=== PATIENT | female | born 1935 | race Hispanic/Latino ===

== ENCOUNTER 2019-03-31 08:15 | Emergency (ER) | payer MEDICARE ==
[~2019-03-31] VITALS: Ht 152.4 cm; Wt 60.8 kg
[~2019-03-31 08:15] MED LIST: ANTIVERT25 MG PO; ARICEPT5 MG PO; CARISOPRODOL350 MG PO; COREG3.125 MG PO; DEPAKOTE ER250 MG PO; FERROUS SULFAT325 MG PO; FUROSEMIDE40 MG PO; LEVAQUIN500 MG PO; LISINOPRIL10 MG PO; NAMENDA5 MG PO; PROCARDIA XL30 MG PO; SEROQUEL25 MG PO; TRAZODONE HCL50 MG PO
[2019-03-31] MEDS ORDERED: ASPIRIN 81 MG CHEW TAB PO ONE (08:30)
[2019-03-31 08:49] LABS: BASOPHILS % 0.3 % (0.0-1.0); EOSINOPHILS # (AUTO) 0.1 (0.0-0.4); EOSINOPHILS % 1.4 % (0.0-6.0); HEMATOCRIT 37.7 % (34.2-44.1); HEMOGLOBIN 12.5 g/dL (12.0-16.0); LYMPHOCYTES # (AUTO) 0.6 (1.0-3.2); LYMPHOCYTES % 8.8 % (18.0-39.1); MEAN CORPUSCULAR HEMOGLOBIN 28.7 pg (28-32); MEAN CORPUSCULAR HGB CONC 33.2 g/dL (31-35); MEAN CORPUSCULAR VOLUME 86.7 fL (81-99); MONOCYTES # (AUTO) 0.5 (0.2-0.8); NEUTROPHILS # (AUTO) 5.4 (2.1-6.9); NEUTROPHILS % 82.2 % (38.7-80.0); PLATELET COUNT 175 x10e3/uL (140-360); RED BLOOD COUNT 4.35 x10e6/uL (3.6-5.1)
[2019-03-31] MEDS ORDERED: LIDOCAINE 1% W/EPINEPHRINE 20 ML VIAL INJ ONE (09:00)
[2019-03-31 09:31] LABS: ALANINE AMINOTRANSFERASE 22 IU/L (0-55); ALBUMIN 3.8 g/dL (3.5-5.0); ANION GAP 16.3 mmol/L (8-16); BLOOD UREA NITROGEN 22 mg/dL (7-26); BUN/CREATININE RATIO 26 (6-25); CARBON DIOXIDE 27 mmol/L (22-29); CHLORIDE 102 mmol/L (98-107); CREATINE KINASE 365 IU/L (29-168); CREATININE, SERUM 0.85 mg/dL (0.57-1.11); EST GLOMERULAR FILTRATION RATE > 60 ML/MIN (60-); GLUCOSE 106 mg/dL (74-118); POTASSIUM 4.3 mmol/L (3.5-5.1); SODIUM 141 mmol/L (136-145)
[2019-03-31 09:43] LABS: ALKALINE PHOSPHATASE 104 IU/L (40-150)
--- NOTE | 2019-03-31 09:58 | Diagnostic Imaging Report ---
Head and cervical spine CTs without IV contrast History: Trauma, fall, weakness, head laceration Comparison studies: No prior exams are available for comparison the time of dictation. Technique: Axial images were obtained from the brain and cervical spine. Coronal and sagittal images reconstructed from the axial data. Dose modulation, iterative reconstruction, and/or weight based adjustment of the mA/kV was utilized to reduce the radiation dose to as low as reasonably achievable. Intravenous contrast: None Findings: Head CT: Exam is somewhat limited by artifacts related to patient motion. Spinal limitations: Scalp: Left zygomatical frontal soft tissue hematoma and laceration. No retained hyperdense foreign body. Bones: No fractures, blastic or lytic lesions. Extra-axial spaces: No masses. No fluid collections. Brain sulci: Mildly prominent. Ventricles: Mild compensatory dilatation. No hydrocephalus. Parenchyma: No mass, acute hemorrhage or acute cortical insults. A few scattered hypodensities in the supratentorial white matter are nonspecific but most compatible with chronic microvascular ischemic changes. There is mild generalized volume loss with greater disproportionate volume loss along the anteromedial temporal lobes an hippocampi. Sellar/suprasellar region: No abnormalities. Craniocervical junction: The foramen magnum is patent. No Chiari one malformation. Cervical spine CT: Fractures: None. Soft tissues: No gross acute abnormalities. Atlantoaxial articulation: Intact. Patient's head is rotated at the time the exam. Alignment: Normal cervical curvature. No subluxations. Cervicomedullary junction: No abnormalities. The foramen magnum is patent. Vertebrae: Surgical changes of prior C6-C7 anterior cervical discectomy and fusion (ACDF) without evidence of hardware failure or loosening. Severe facet arthrosis on the right from C3 to C6 with fused facets on the right at C4-C5. Uncovertebral facet arthrosis result in severe foraminal stenosis on the right at C3-C4, moderate foraminal stenosis on the right at C4-C5 and severe foraminal stenosis on the right at C5-C6 no significant canal stenosis. Degenerative changes: None. Included lung apices: Nonspecific linear-nodular density at the right lung apex with punctate subpleural dystrophic calcification, possibly sequela prior infection/inflammation, moreover, cannot further evaluate on this exam. Incidental findings: Mild scattered calcified atherosclerosis in the cervical carotid arteries as well as calcified plaque in the bilateral carotid siphons and left intradural vertebral artery. Partially imaged chronic deformity of the left clavicle may reflect sequela of prior trauma/fracture. IMPRESSION: Head CT: Exam somewhat limited by motion artifacts. 1. Left frontal/lateral periorbital soft tissue laceration and hematoma. No retained hyperdense foreign body or fracture. 2. No gross acute abnormalities. 3. Mild chronic microvascular ischemic changes. 4. Mild generalized parenchymal volume loss with disproportionate anteromedial temporal lobe and hippocampal volume loss which can be seen with Alzheimer's dementia in the proper clinical setting. Cervical spine CT: 1. No cervical spine fracture subluxation. 2. Surgical changes of C6-C7 ACDF. 3. Multilevel degenerative changes as described. 4. Incidental nonspecific right upper lobe linear-nodular densities. Recommend dedicated chest CT to further evaluate. Cannot exclude ligament, spinal cord and or vascular abnormalities on the basis of this examination. Signed by: Dr. Louie Cortez M.D. on 03/31/2019 9:54 AM
--- NOTE | 2019-03-31 10:13 | NUR ---
LACERATION REPAIR DONE BY DR QUIJANO
[2019-03-31 10:38] VITALS: BP 130/77
--- NOTE | 2019-03-31 11:20 | Diagnostic Imaging Report ---
Left Elbow- 3 Views HISTORY: Pain COMPARISON: None FINDINGS: No acute fracture or dislocation. No joint effusion. Mild degenerative changes with small osteophyte formation. Venous access at the antecubital fossa. IMPRESSION: No acute osseous injury. Signed by: Jese Preston MD on 03/31/2019 11:17 AM
--- NOTE | 2019-03-31 11:24 | Diagnostic Imaging Report ---
Exam: Left Wrist - 3 views History: Fall Comparison: None Findings: 3 views of the leftwrist. No acute fracture or dislocation. There is soft tissue swelling overlying the dorsum of the left wrist. Scattered degenerative changes are present. Impression: Soft tissue swelling at the dorsum of the left wrist with no underlying acute osseous injury. Signed by: Jese Preston MD on 03/31/2019 11:21 AM
== END 2019-03-31 10:53 | disposition home or self-care (01) ==
LOC: ER 08:15
DX: S01.412A Laceration without foreign body of left cheek and temporomandibular area, initial encounter (principal); S00.83XA Contusion of other part of head, initial encounter; S50.312A Abrasion of left elbow, initial encounter; W06.XXXA Fall from bed, initial encounter; Y93.84 Activity, sleeping; Y92.128 Other place in nursing home as the place of occurrence of the external cause; F03.90 Unspecified dementia, unspecified severity, without behavioral disturbance, psychotic disturbance, mood disturbance, and anxiety; I10 Essential (primary) hypertension; F41.9 Anxiety disorder, unspecified
CPT/HCPCS: 36415; 70450; 72125; 80053; 82550; 82553; 82948; 83605; 84484; 85025; 93005; 99284

== ENCOUNTER 2020-05-21 22:51 | Observation (INO) | payer MEDICARE, OTHER ==
[~2020-05-21] VITALS: Ht 152.4 cm; Wt 60.8 kg
[2020-05-21] MEDS ORDERED: DIGOXIN INJ 0.25 MG/ML 2 ML AMP IV STA (22:57)
[2020-05-21] MEDS ORDERED: DILTIAZEM HCL 5 MG/ML 5 ML VIAL IV STA (22:57)
--- NOTE | 2020-05-21 22:57 | NUR ---
PT ARRIVED BY EMS, INFORMED THAT PT HAD COVID X 1 AGO. EMS STATES THAT PT RETESTED AT HALFWAY AND RESULT WAS NEGATIVE. Addendum: 05/22/20 at 0448 by FELICE PT ARRIVED BY EMS, INFORMED THAT PT HAD COVID X 1 MONTH AGO. EMS STATES THAT PT RETESTED AT HALFWAY AND RESULT WAS NEGATIVE.
--- NOTE | 2020-05-21 22:59 | Emergency Department Note ---
History of Present Illnes History of Present Illness History of Present Illness This is a 85 year old female brought by EMS for evaluation of tacycardia . 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, [employer] Teacher/EMS Onset (how long ago): second(s) Radiation: Reports non-radiation Severity: mild Onset quality: sudden Duration (how long): hour(s) (1) Timing of current episode: constant Progression: unchanged Chronicity: new Context: Reports recent illness, Reports recent immobilization Relieving factors: none Exacerbating factors: none Associated symptoms: Reports denies other symptoms; Denies confusion, Denies chest pain, Denies cough, Denies diaphoresis, Denies fever/chills, Denies headaches, Denies loss of appetite, Denies malaise, Denies nausea/vomiting, Denies rash, Denies seizure, Denies shortness of breath, Denies syncope, Denies weakness, Denies other Past Medical/Family History Physician Review I have reviewed the patient's past medical and family history. Any updates have been documented here. Past Medical History Recent Fever: No Clinical Suspicion of Infectio: No Past Medical History: Hypertension, Anxiety, Depression Other Medical History: DEMENTIA SYNCOPAL EPISODES COLLAPSED VERTEBRAE INSOMNIA DYSPHAGIA Other Surgery: UNKNOWN Social History Smoking Cessation: Never Smoker Alcohol Use: None Any Illegal Drug Use: No Other Last Tetanus: unknown Review of Systems Review of Systems Constitutional: Reports no symptoms EENTM: Reports no symptoms Cardiovascular: Reports palpitations; Denies chest pain Respiratory: Reports no symptoms Gastrointestinal: Reports no symptoms Genitourinary: Reports no symptoms Musculoskeletal: Reports no symptoms Integumentary: Reports no symptoms Neurological: Reports no symptoms Psychological: Reports no symptoms Endocrine: Reports no symptoms Hematological/Lymphatic: Reports no symptoms Physical Exam Related Data Allergies: Coded Allergies: Penicillins (Verified Allergy, Severe, 05/21/20) Triage Vital Signs Vital Signs Date Time Temp Pulse Resp B/P (MAP) Pulse Ox O2 Delivery O2 Flow Rate FiO2 05/21/20 23:14 130 05/21/20 23:14 115/71 05/21/20 23:22 97.0 95 Room Air 05/21/20 23:43 14 Vital signs reviewed: Yes Physical Exam CONSTITUTIONAL Constitutional: Present well-developed; Absent distressed, Absent ill appearing HENT HENT: Present normocephalic, Present atraumatic, Present oropharynx clear/moist, Present nose normal HENT L/R: Present left ext ear normal, Present right ext ear normal EYES Eyes: Reports PERRL, Reports conjunctivae normal NECK Neck: Present ROM normal PULMONARY Pulmonary: Present effort normal, Present breath sounds normal CARDIOVASCULAR Cardiovascular: Present irregular rhythm, Present tachycardia GASTROINTESTINAL Abdominal: Present soft, Present nontender, Present bowel sounds normal GENITOURINARY Genitourinary: Present exam deferred SKIN Skin: Present warm, Present dry MUSCULOSKELETAL Musculoskeletal: Present ROM normal NEUROLOGICAL Neurological: Present alert, Present oriented x 3, Present no gross motor or sensory deficits PSYCHOLOGICAL Psychological: Present mood/affect normal, Present judgement normal Results Laboratory Lab results reviewed: Yes Laboratory comments Laboratory Tests Test 05/21/20 23:35 05/21/20 23:10 White Blood Count 6.94 x10e3/uL (4.8-10.8) Red Blood Count 5.01 x10e6/uL (3.6-5.1) Hemoglobin 14.0 g/dL (12.0-16.0) Hematocrit 43.2 % (34.2-44.1) Mean Corpuscular Volume 86.2 fL (81-99) Mean Corpuscular Hemoglobin 27.9 pg (28-32) Mean Corpuscular Hemoglobin Concent 32.4 g/dL (31-35) Red Cell Distribution Width 15.2 % (11.7-14.4) Platelet Count 234 x10e3/uL (140-360) Neutrophils (%) (Auto) 71.3 % (38.7-80.0) Lymphocytes (%) (Auto) 18.3 % (18.0-39.1) Monocytes (%) (Auto) 7.5 % (4.4-11.3) Eosinophils (%) (Auto) 2.2 % (0.0-6.0) Basophils (%) (Auto) 0.6 % (0.0-1.0) Neutrophils # (Auto) 5.0 (2.1-6.9) Lymphocytes # (Auto) 1.3 (1.0-3.2) Monocytes # (Auto) 0.5 (0.2-0.8) Eosinophils # (Auto) 0.2 (0.0-0.4) Basophils # (Auto) 0.0 (0.0-0.1) Absolute Immature Granulocyte (auto 0.01 x10e3/uL (0-0.1) Sodium Level 146 mmol/L (136-145) Potassium Level 3.4 mmol/L (3.5-5.1) Chloride Level 104 mmol/L (98-107) Carbon Dioxide Level 28 mmol/L (22-29) Anion Gap 17.4 mmol/L (8-16) Blood Urea Nitrogen 30 mg/dL (7-26) Creatinine 1.40 mg/dL (0.57-1.11) Estimat Glomerular Filtration Rate 36 ML/MIN (60-) BUN/Creatinine Ratio 21 (6-25) Glucose Level 116 mg/dL (74-118) Calcium Level 8.7 mg/dL (8.4-10.2) Total Bilirubin 1.2 mg/dL (0.2-1.2) Aspartate Amino Transf (AST/SGOT) 28 IU/L (5-34) Alanine Aminotransferase (ALT/SGPT) 25 IU/L (0-55) Alkaline Phosphatase 148 IU/L (40-150) Creatine Kinase 18 IU/L (29-168) Creatine Kinase MB 0.50 ng/mL (0-5.0) Troponin I 0.004 ng/mL (0-0.300) B-Type Natriuretic Peptide 568.9 pg/mL (0-100) Total Protein 7.8 g/dL (6.5-8.1) Albumin 2.9 g/dL (3.5-5.0) Globulin 4.9 g/dL (2.3-3.5) Albumin/Globulin Ratio 0.6 (0.8-2.0) Imaging Imaging results reviewed: Yes Impressions [place] [address] Patient Name: JOSE GRAJEDA MR #: [id number] : 1935 Age/Sex: 85/F Req #: [id number] Adm Physician: Ordered by: JOAO QUIÑONES DO Report #: [id number] Location: ER Room/Bed: Procedure: [id number] DX/CHEST SINGLE (PORTABLE) Exam Date: 05/21/20 Exam Time: 2355 REPORT STATUS: Signed EXAMINATION: CHEST SINGLE (PORTABLE) INDICATION: Atrial fibrillation COMPARISON: None FINDINGS: TUBES and LINES: None. LUNGS: Normal lung volumes. Left basilar haziness. PLEURA: No pleural effusion or pneumothorax. HEART AND MEDIASTINUM: The cardiomediastinal silhouette is unremarkable. BONES AND SOFT TISSUES: No acute osseous lesion. Soft tissues are unremarkable. Cervical fixation hardware. Degenerative changes. Left mid clavicular deformity. UPPER ABDOMEN: No free air under the diaphragm. IMPRESSION: Mild cardiomegaly. Left basilar haziness can be due to atelectasis or pneumonia. Signed by: Chuck Rice DO on 05/22/2020 2:10 AM Dictated By: CHUCK RICE DO 9 Transcribed By: FABIAN on 05/22/20209 COPY TO: JOAO QUIÑONES DO~ Procedures 12 Lead ECG Interpretation ECG Interpretation : ECG: ECG 1 Radial Saw Operator: Interpreted by ED physician Prior ECG tracings: reviewed Rhythm: atrial fibrillation Rate: tachycardia BPM: 133 ST segments normal: No ST segment flattening: V3, V4, V5, V6 Clinical Impression: abnormal ECG Assessment & Plan Medical Decision Making MDM 85 yof presents with palpitations. CMP, CBC, EKG, and cardiac enzymes ordered for consideration of ACS, PE, costocondritis, Chest wall pain, and pneumothorax considered. labs, imaging and EKG reviewed . Assessment & Plan Final Impression: (1) Atrial fibrillation with RVR (2) CHF (congestive heart failure) Depart Disposition: ADMITTED Home Meds Reported Medications Memantine Hcl (NAMENDA) 5 Mg Tablet, 5 MG PO BID 03/16/16 Ferrous Sulfate (FERROUS SULFATE) 325 Mg Tablet, 325 MG PO BID 03/16/16 Quetiapine Fumarate (SEROQUEL) 25 Mg Tablet, 25 MG PO HS, #60 TAB 03/16/16 Nifedipine (PROCARDIA XL) 30 Mg Tab.er.24, 30 MG PO DAILY, #30 TAB 03/16/16 Divalproex Sodium (DEPAKOTE ER) 250 Mg Tab.er.24h, 250 MG PO DAILY 03/16/16 Donepezil Hcl (ARICEPT) 5 Mg Tablet, 10 MG PO HS, #60 TAB 06/05/15 Medications in the ED Aspirin 81 mg PRN ONCE PO ; Start 05/21/20 at 23:00; Stop 05/21/20 at 23:01; Status JOAO LAWS DO May 21, 2020 22:59
[2020-05-21] MEDS ORDERED: ASPIRIN 81 MG CHEW TAB PO ONE (23:00)
[2020-05-21] MEDS ORDERED: SODIUM CHLORIDE 0.9% 1000ML 1,000 ML IV STA (23:02)
[2020-05-21 23:20] LABS: BASOPHILS % 0.6 % (0.0-1.0); EOSINOPHILS # (AUTO) 0.2 (0.0-0.4); EOSINOPHILS % 2.2 % (0.0-6.0); HEMATOCRIT 43.2 % (34.2-44.1); LYMPHOCYTES # (AUTO) 1.3 (1.0-3.2); LYMPHOCYTES % 18.3 % (18.0-39.1); MEAN CORPUSCULAR HEMOGLOBIN 27.9 pg (28-32); MEAN CORPUSCULAR HGB CONC 32.4 g/dL (31-35); MEAN CORPUSCULAR VOLUME 86.2 fL (81-99); MONOCYTES # (AUTO) 0.5 (0.2-0.8); MONOCYTES % 7.5 % (4.4-11.3); NEUTROPHILS % 71.3 % (38.7-80.0); PLATELET COUNT 234 x10e3/uL (140-360); RED BLOOD COUNT 5.01 x10e6/uL (3.6-5.1); RED CELL DISTRIBUTION WIDTH 15.2 % (11.7-14.4)
--- OUTSIDE RECORDS SUMMARY | 2020-05-21 23:27 | XMS REPORT | Continuity of Care Document ---
Author Author [facility] t Organization [facility] Address [address] [place] [address] Phone Unavailable Care Team Providers Care Cover Remover Name Role Phone MISAEL WILCOX MD PCP Lucien QUIJANO Unavailable Payers Payer Name Policy Type Policy Number Effective Date Expiration Date Blossom panda Medicare A & B [id number] 1999 00:00:00 [facility] Problems Condition Name Condition Details Condition Category Status Onset Date Resolution Date Last Treatment Date Treating Clinician Comments Source Fever Fever Problem Active 2016-03-16 00:00:00 [facility] Hypotension Hypotension Problem Active 2016-03-16 00:00:00 [facility] Pain in the abdomen Pain in the abdomen Problem Active 2016-03-16 00:00 :[address] [facility] [place] [place] Allergies, Adverse Reactions, Alerts This patient has no known allergies or adverse reactions. Medications Ordered Medication Name Filled Medication Name Start Date Stop Da te Current Medication? Ordering Clinician Indication Dosage Frequency Signature (SIG) Comments Components Source Divalproex Sodium (Depakote Er) 250 Mg Tab.er.24h Diva lproex Sodium (Depakote Er) 250 Mg Tab.er.24h Yes 250 Daily [facility] Donepezil Hcl (Aricept) 5 Mg Tablet Donepezil Hcl (Aricept) 5 Mg Tabl et Yes 10 Bedtime [facility] Ferrous Sulfate 325 Mg Tablet Ferrous Sulfate 325 Mg Tablet Yes 325 Twice A Day [facility] Memantine Hcl (Namenda) 5 Mg Tablet Memantine Hcl (Namenda) 5 Mg Tabl et Yes 5 Twice A Day [facility] Nifedipine (Procardia Xl) 30 Mg Tab.er.24 Nifedipine ( Procardia Xl) 30 Mg Tab.er.24 Yes 30 Daily [facility] Quetiapine Fumarate (Seroquel) 25 Mg Tablet Quetiapine Fumarate (Seroquel) 25 Mg Tablet Yes 25 Bedtime [facility] Carisoprodol 350 Mg Tablet, 350 Mg Oral Carisoprodol 350 Mg Tablet, 350 Mg Oral 2016-03-23 00:00:00 No 350 Every 6 Hour s While Awake for Muscle Spasms [facility] Carvedilol (Coreg) 3.125 Mg Tab, 3.125 Mg Oral Carvedi lol (Coreg) 3.125 Mg Tab, 3.125 Mg Oral 2016-03-23 00:00:00 No 3.125 Twice A Da y [facility] Furosemide 40 Mg Tablet, 40 Mg Oral Furosemide 40 Mg Tablet, 40 Mg Oral 2016-03-23 00:00:00 No 40 Daily [facility] Levofloxacin (Levaquin) 500 Mg Tablet, 500 Mg Oral Lev ofloxacin (Levaquin) 500 Mg Tablet, 500 Mg Oral 2016-03-23 00:00:00 No 500 D aily [facility] Lisinopril 10 Mg Tablet, 10 Mg Oral Lisinopril 10 Mg Tablet, 10 Mg Oral 2016-03-23 00:00:00 No 10 Daily [facility] Meclizine Hcl (Antivert) 25 Mg Tablet, 25 Mg Oral Mecl izine Hcl (Antivert) 25 Mg Tablet, 25 Mg Oral 2016-03-23 00:00:00 No 25 Every 8 Hours [facility] Trazodone Hcl 50 Mg Tablet, 50 Mg Oral Trazodone Hcl 50 Mg Table t, 50 Mg Oral 2016-03-23 00:00:00 No 50 Daily [facility] Procedures Procedure Date / Time Performed Performing Clinician [facility] e Computed tomography of brain without radiopaque contrast 201 06-07-01 00:00:00 ALMA ROSA QUIJANO [facility] Computed tomography of cervical spine without contrast 03-31 00:00:00 ALMA ROSA QUIJANO [facility] Encounters Start Date/Time End Date/Time Encounter Type Admission Type [facility] Care Department Encounter ID Source 2019-03-31 08:15:00 2019-03-31 10:53:00 Departed Emergency Room 1 ALMA ROSA QIUJANO [facility] [id number] [facility] Results Test Description Test Time Test Comments Results Result Comments Source WRIST COMPLETE LEFT 2019-03-31 11:18:00 [facility] [address] [place] [address] Patient Name: JOSE GRAJEDA MR #: [id number] : 1935 Age/Sex: 84/F Req #: [id number] Adm Physician: Ordered by: ALMA ROSA QUIJANO MD Report #: [id number] Location: ER Room/Bed: Procedure: [id number] DX/WRIST COMPLETE LEFT Exam Date: 03/31/19 Exam Time: 0930 REPORT STATUS: Signed Exam: Left Wrist - 3 views History: Fall Comparison: None Findings: 3 views of the leftwrist. No acute fracture or dislocation. There is soft tissue swelling overlying the dorsum of the left wrist. Scattered degenerative changes are present. Impression: Soft tissue swelling at the dorsum of the left wrist with no underlying acute osseous injury. Signed by: Patricia Teran MD on 03/31/2019 11:21 AM Dictated By: PATRICIA TERAN MD 1121 Transcribed By: FABIAN on 03/31/19 1121 COPY TO: ALMA ROSA QUIJANO MD ELBOW LEFT COMPLETE 2019-03-31 11:14:00 [facility] [address] [place] [address] Patient Name: JOSE GRAJEDA MR #: [id number] : 1935 Age/Sex: 84/F Req #: [id number] Adm Physician: Ordered by: ALMA ROSA QUIJANO MD Report #: [id number] Location: ER Room/Bed: Procedure: [id number] DX/ELBOW LEFT COMPLETE Exam Date: 03/31/19 Exam Time: 929 REPORT STATUS: Signed Left Elbow- 3 Views HISTORY: Pain COMPARISON: None FINDINGS: No acute fracture or dislocation. No joint effusion. Mild degenerative changes with small osteophyte formation. Venous access at the antecubital fossa. IMPRESSION: No acute osseous injury. Signed by: Patricia Teran MD on 03/31/2019 11:17 AM Dictated By: PATRICIA TERAN MD 111 Transcribed By: FABIAN on 03/31/19 111 COPY TO: ALMA ROSA QUIJANO MD Alkaline Phosphatase 2019-03-31 09:49:00 Test Item Alkaline Phosphatase (test code = 6768-6) 104 40-150 [facility] Kinase [id number] 09:38:00* Test Item Value Reference Range Interpretation Comments Creatine Kinase MB (test code = 81279-3) 8.40 0-5.0 H [facility] CenterTroponin [id number] 09:38:00* Test Item Value Reference Range Interpretation Comments Troponin I (test code = SYC5160) 0.004 0-0.300 [facility] CenterCT [facility] SP[facility] [id number] 09:35:00 [place] [address] Patient Name: JOSE GRAJEDA MR #: [id number] : 1935 Age/Sex: 84/F Req #: [id number] Adm Physician: Ordered by: ALMA ROSA QUIJANO MD Report #: [id number] Location: ER Room/Bed: Procedure: [id number] CT/ CT CERVICAL SPINE WO Exam Date: 03/31/19 Exam Time: 0900 REPORT STATUS: Signed Head and cervical spine CTs without IV contrast History: Trauma, fall, weakness, he ad laceration Comparison studies: No prior exams are available for comparison the time of dictation. Technique: Axial images were obtained from the b rain and cervical spine. Coronal and sagittal images reconstructed from the ax ial data. Dose modulation, iterative reconstruction, and/or weight based adjus tment of the mA/kV was utilized to reduce the radiation dose to as low as reas onably achievable. Intravenous contrast: None Findings: Head CT : Exam is somewhat limited by artifacts related to patient motion. Spinal limitations: Scalp: Left zygomatical frontal soft tissue hematoma and lace ration. No retained hyperdense foreign body. Bones: No fractures, blastic or lytic lesions. Extra-axial spaces: No masses. No fluid collections. Brain sulci: Mildly prominent. Ventricles: Mild compensatory dilatation. No hy drocephalus. Parenchyma: No mass, acute hemorrhage or acute cortical ins ults. A few scattered hypodensities in the supratentorial white matter are non specific but most compatible with chronic microvascular ischemic changes. There is mild generalized volume loss with greater disproportionate volume loss along the anteromedial temporal lobes an hippocampi. Sellar/suprasellar region: No abnormalities. Craniocervical junction: The foramen magnum is paten t. No Chiari one malformation. Cervical spine CT: Fractures: None. Soft tissues: No gross acute abnormalities. Atlantoaxial articulation: In tact. Patient's head is rotated at the time the exam. Alignment: Normal cerv ical curvature. No subluxations. Cervicomedullary junction: No abnormalities. The foramen magnum is patent. Vertebrae: Surgical changes of prior C6-C7 anterior cervical discectomy and fusion (ACDF) without evidence of hardware f ailure or loosening. Severe facet arthrosis on the right from C3 to C6 with fu sed facets on the right at C4-C5. Uncovertebral facet arthrosis result in svitlana re foraminal stenosis on the right at C3-C4, moderate foraminal stenosis on th e right at C4-C5 and severe foraminal stenosis on the right at C5-C6 no signif icant canal stenosis. Degenerative changes: None. Included lung api sen: Nonspecific linear-nodular density at the right lung apex with punctate subpleural dystrophic calcification, possibly sequela prior infection/inflam mation, moreover, cannot further evaluate on this exam. Incidental findings : Mild scattered calcified atherosclerosis in the cervical carotid arteries as well as calcified plaque in the bilateral carotid siphons and left intradural vertebral artery. Partially imaged chronic deformity of the left clavicle may reflect sequela of prior trauma/fracture. IMPRESSION: Head CT: Exam somewhat limited by motion artifacts. 1. Left frontal/lateral perior bital soft tissue laceration and hematoma. No retained hyperdense foreign body or fracture. 2. No gross acute abnormalities. 3. Mild chronic microvascul ar ischemic changes. 4. Mild generalized parenchymal volume loss with disprop ortionate anteromedial temporal lobe and hippocampal volume loss which can be seen with Alzheimer's dementia in the proper clinical setting. Cervical s pine CT: 1. No cervical spine fracture subluxation. 2. Surgical changes of C6-C7 ACDF. 3. Multilevel degenerative changes as described. 4. Incide ntal nonspecific right upper lobe linear-nodular densities. Recommend dedicate d chest CT to further evaluate. Cannot exclude ligament, spinal cord and or vascular abnormalities on the basis of this examination. Signed by: Dr. Jaren Cortez M.D. on 03/31/2019 9:54 AM Dictated By: JAREN CORTEZ MD Transcribed By: FABIAN on 03/31/19953 COPY TO: ALMA ROSA QUIJANO MD CT BRAIN WO 2019-03-31 09:35:00 [facility] [address] [place] [address] Patient Name: JOSE GRAJEDA MR #: [id number] : 1935 Age/Sex: 84/F Req #: [id number] Adm Physician: Ordered by: ALMA ROSA QUIJANO MD Report #: [id number] Location: ER Room/Bed: Procedure: [id number] CT/ CT BRAIN WO Exam Date: 03/31/19 Exam Time: 0856 REPORT STATUS: Signed Head and cervi jackelin spine CTs without IV contrast History: Trauma, fall, weakness, head lacera tion Comparison studies: No prior exams are available for comparison the time of dictation. Technique: Axial images were obtained from the brain and cervical spine. Coronal and sagittal images reconstructed from the axial data. Dose modulation, iterative reconstruction, and/or weight based adjustment of the mA/kV was utilized to reduce the radiation dose to as low as reasonably ac hievable. Intravenous contrast: None Findings: Head CT: Ex am is somewhat limited by artifacts related to patient motion. Spinal limitati ons: Scalp: Left zygomatical frontal soft tissue hematoma and laceration. N o retained hyperdense foreign body. Bones: No fractures, blastic or lytic le sions. Extra-axial spaces: No masses. No fluid collections. Brain sul ci: Mildly prominent. Ventricles: Mild compensatory dilatation. No hydrocephal us. Parenchyma: No mass, acute hemorrhage or acute cortical insults. A f ew scattered hypodensities in the supratentorial white matter are nonspecific but most compatible with chronic microvascular ischemic changes. There is mild generalized volume loss with greater disproportionate volume loss along the anteromedial temporal lobes an hippocampi. Sellar/suprasellar region: N o abnormalities. Craniocervical junction: The foramen magnum is patent. No Ch iari one malformation. Cervical spine CT: Fractures: None. Soft ti ssues: No gross acute abnormalities. Atlantoaxial articulation: Intact. Es stark's head is rotated at the time the exam. Alignment: Normal cervical curv ature. No subluxations. Cervicomedullary junction: No abnormalities. The cecily en magnum is patent. Vertebrae: Surgical changes of prior C6-C7 anterior cervical discectomy and fusion (ACDF) without evidence of hardware failure or loosening. Severe facet arthrosis on the right from C3 to C6 with fused facets on the right at C4-C5. Uncovertebral facet arthrosis result in severe forami nal stenosis on the right at C3-C4, moderate foraminal stenosis on the right a t C4-C5 and severe foraminal stenosis on the right at C5-C6 no significant can al stenosis. Degenerative changes: None. Included lung apices: N onspecific linear-nodular density at the right lung apex with punctate subpleu ral dystrophic calcification, possibly sequela prior infection/inflammation, liborio coreas, cannot further evaluate on this exam. Incidental findings: Mild scattered calcified atherosclerosis in the cervical carotid arteries as well a s calcified plaque in the bilateral carotid siphons and left intradural verteb ral artery. Partially imaged chronic deformity of the left clavicle may reflec t sequela of prior trauma/fracture. IMPRESSION: Head CT: Exam micaela ewhat limited by motion artifacts. 1. Left frontal/lateral periorbital sof t tissue laceration and hematoma. No retained hyperdense foreign body or fract ure. 2. No gross acute abnormalities. 3. Mild chronic microvascular ischem ic changes. 4. Mild generalized parenchymal volume loss with disproportionate anteromedial temporal lobe and hippocampal volume loss which can be seen with Alzheimer's dementia in the proper clinical setting. Cervical spine CT: 1. No cervical spine fracture subluxation. 2. Surgical changes of C6-C7 ACDF. 3. Multilevel degenerative changes as described. 4. Incidental nons pecific right upper lobe linear-nodular densities. Recommend dedicated chest C T to further evaluate. Cannot exclude ligament, spinal cord and or vascular abnormalities on the basis of this examination. Signed by: Dr. Jaren Beltran M.D. on 03/31/2019 9:54 AM Dictated By: JAREN R MIGUELITO corado Signed By: JAREN CORTEZ MD on 03/31/19953 Transcribed By: FABIAN johnson 03/31/19953 COPY TO: ALMA ROSA QUIJANO MD Sodium Level 2019-03-31 09:33:00* Test Item Value Reference Range Interpretation Comments Sodium Level (test code = 2951-2) 141 136-145 [facility] CenterPotassium [id number] 09:33:00* Test Item Value Reference Range Interpretation Comments Potassium Level (test code = 2823-3) 4.3 3.5-5.1 [facility] CenterChloride [id number] 09:33:00* Test Item Value Reference Range Interpretation Comments Chloride Level (test code = 2075-0) 102 98-107 [facility] CenterCarbon Dioxide Vektj4504-36-54 09:33:00* Test Item Value Reference Range Interpretation Comments Carbon Dioxide Level (test code = 2028-9) 27 22-29 [facility] CenterAnion Kqo7898-09-67 09:33:00* Test Item Value Reference Range Interpretation Comments Anion Gap (test code = 21546-7) 16.3 8-16 H [facility] CenterBlood Urea [id number] 09:33:00* Test Item Value Reference Range Interpretation Comments Blood Urea Nitrogen (test code = 3094-0) 22 7-26 [facility] CenterCreatinine2019-07-01 09:33:00* Test Item Value Reference Range Interpretation Comments Creatinine (test code = 2160-0) 0.85 0.57-1.11 [facility] CenterBUN/Creatinine Pfxrz2616-27-09 09:33:00* Test Item Value Reference Range Interpretation Comments BUN/Creatinine Ratio (test code = 3097-3) 26 6-25 H [facility] CenterEstimat Glomerular Filtration Rate 2019-03-31 09:33:00* Test Item Value Reference Range Interpretation Comments Estimat Glomerular Filtration Rate (test code = 326858832) > 60 >60 Ranges were taken from the National Kidney Disease Education Program and the [facility] Foundation literature.Reference ranges:60 or greater: Wqtsee97-46 ( for 3 consecutive months): Chronic kidney disease 15 or less: Kidney failureConnally Memorial Medical CenterGlucose Gnkhd9738-39-27 09:33:00* Test Item Value Reference Range Interpretation Comments Glucose Level (test code = MJM6325) 106 74-118 [facility] CenterCalcium Xmeqm2089-37-27 09:33:00* Test Item Value Reference Range Interpretation Comments Calcium Level (test code = 16291-3) 9.0 8.4-10.2 [facility] CenterTotal Kigvfxxxb3146-83-54 09:33:00* Test Item Value Reference Range Interpretation Comments Total Bilirubin (test code = 1975-2) 0.6 0.2-1.2 [facility] CenterAspartate Amino Transf (AST/SGOT) 2019-03-31 09:33:00* Test Item Value Reference Range Interpretation Comments Aspartate Amino Transf (AST/SGOT) (test code = Aspartate Amino Transf (AST/SGOT)) 27 5-34 [facility] CenterAlanine Aminotransferase (ALT/SGPT) 2019-03-31 09:33:00* Test Item Value Reference Range Interpretation Comments Alanine Aminotransferase (ALT/SGPT) (test code = 1742-6) 22 0-55 [facility] Avazbok4652-88-56 09:33:00* Test Item Value Reference Range Interpretation Comments Total Protein (test code = 2885-2) 7.7 6.5-8.1 [facility] CenterAlbumin2019-07-01 09:33:00* Test Item Value Reference Range Interpretation Comments Albumin (test code = 1751-7) 3.8 3.5-5.0 [facility] CenterGlobulin2019-07-01 09:33:00* Test Item Value Reference Range Interpretation Comments Globulin (test code = 24853-4) 3.9 2.3-3.5 H [facility] CenterAlbumin/Globulin Yttii4198-05-81 09:33:00 * Test Item Value Reference Range Interpretation Comments Albumin/Globulin Ratio (test code = 1759-0) 1.0 0.8-2.0 [facility] CenterCreatine Cqrhja0497-79-90 09:33:00* Test Item Value Reference Range Interpretation Comments Creatine Kinase (test code = 2157-6) 365 29-168 H [facility] CenterLactic Acid Qxjah0161-08-85 09:25:00* Test Item Value Reference Range Interpretation Comments Lactic Acid Level (test code = Lactic Acid Level) 8.7 4.5- 19.8 [facility] CenterWhite Blood Fvcwb8066-57-44 08:53:00* Test Item Value Reference Range Interpretation Comments White Blood Count (test code = 6690-2) 6.59 4.8-10.8 [facility] CenterRed Blood Fjenf3529-95-98 08:53:00* Test Item Value Reference Range Interpretation Comments Red Blood Count (test code = 789-8) 4.35 3.6-5.1 [facility] CenterHemoglobin2019-07-01 08:53:00* Test Item Value Reference Range Interpretation Comments Hemoglobin (test code = 41766-7) 12.5 12.0-16.0 [facility] CenterHematocrit2019-07-01 08:53:00* Test Item Value Reference Range Interpretation Comments Hematocrit (test code = 4544-3) 37.7 34.2-44.1 [facility] CenterMean Corpuscular Soznki2389-05-92 08:53:00* Test Item Value Reference Range Interpretation Comments Mean Corpuscular Volume (test code = 787-2) 86.7 81-99 [facility] CenterMean Corpuscular Wguapoxyoi0580-75-63 08:53:00* Test Item Value Reference Range Interpretation Comments Mean Corpuscular Hemoglobin (test code = 785-6) 28.7 28-32 [facility] Corpuscular Hemoglobin Concent 2019-03-31 08:53:00* Test Item Value Reference Range Interpretation Comments Mean Corpuscular Hemoglobin Concent (test code = 786-4) 33.2 31-35 [facility] CenterRed Cell Distribution Lkwle1090-12-53 08:53:00* Test Item Value Reference Range Interpretation Comments Red Cell Distribution Width (test code = 27983-1) 13.0 11.7 -14.4 [facility] CenterPlatelet Nrmxk5176-43-39 08:53:00* Test Item Value Reference Range Interpretation Comments Platelet Count (test code = 777-3) 175 140-360 [facility] CenterNeutrophils (%) (Auto)2019-03-31 08:53:00 * Test Item Value Reference Range Interpretation Comments Neutrophils (%) (Auto) (test code = 68563-5) 82.2 38.7-80.0 H [facility] CenterLymphocytes (%) (Auto)2019-03-31 08:53:00 * Test Item Value Reference Range Interpretation Comments Lymphocytes (%) (Auto) (test code = 736-9) 8.8 18.0-39.1 L [facility] CenterMonocytes (%) (Auto)2019-03-31 08:53:00* Test Item Value Reference Range Interpretation Comments Monocytes (%) (Auto) (test code = 5905-5) 7.0 4.4-11.3 [facility] CenterEosinophils (%) (Auto)2019-03-31 08:53:00 * Test Item Value Reference Range Interpretation Comments Eosinophils (%) (Auto) (test code = 713-8) 1.4 0.0-6.0 [facility] CenterBasophils (%) (Auto)2019-03-31 08:53:00* Test Item Value Reference Range Interpretation Comments Basophils (%) (Auto) (test code = 706-2) 0.3 0.0-1.0 [facility] CenterIM GRANULOCYTES %2019-03-31 08:53:00* Test Item Value Reference Range Interpretation Comments IM GRANULOCYTES % (test code = IM GRANULOCYTES %) 0.3 0.0- 1.0 [facility] CenterNeutrophils # (Auto)2019-03-31 08:53:00* Test Item Value Reference Range Interpretation Comments Neutrophils # (Auto) (test code = 751-8) 5.4 2.1-6.9 [facility] CenterLymphocytes # (Auto)2019-03-31 08:53:00* Test Item Value Reference Range Interpretation Comments Lymphocytes # (Auto) (test code = 54117-1) 0.6 1.0-3.2 L [facility] CenterMonocytes # (Auto)2019-03-31 08:53:00* Test Item Value Reference Range Interpretation Comments Monocytes # (Auto) (test code = 742-7) 0.5 0.2-0.8 [facility] CenterEosinophils # (Auto)2019-03-31 08:53:00* Test Item Value Reference Range Interpretation Comments Eosinophils # (Auto) (test code = 711-2) 0.1 0.0-0.4 [facility] CenterBasophils # (Auto)2019-03-31 08:53:00* Test Item Value Reference Range Interpretation Comments Basophils # (Auto) (test code = 704-7) 0.0 0.0-0.1 [facility] CenterAbsolute Immature Granulocyte (auto 2019-03-31 08:53:00* Test Item Value Reference Range Interpretation Comments Absolute Immature Granulocyte (auto (erendira t code = Absolute Immature Granulocyte (auto) 0.02 0-0.1 [facility]
[2020-05-21 23:40] LABS: ALBUMIN 2.9 g/dL (3.5-5.0); ALBUMIN/GLOBULIN RATIO 0.6 (0.8-2.0); ANION GAP 17.4 mmol/L (8-16); CALCIUM 8.7 mg/dL (8.4-10.2); CREATININE, SERUM 1.4 mg/dL (0.57-1.11); POTASSIUM 3.4 mmol/L (3.5-5.1)
[2020-05-21 23:46] LABS: CREATINE KINASE MB 0.5 ng/mL (0-5.0)
--- NOTE | 2020-05-21 23:50 | NUR ---
BNP NOTED ELEVATED ON LAB RESULTS. DR QUIÑONES INFORMED. ORDERED TO STOP BOLUS. BOLUS STOPPED, PT RC'D APPROXIMATELY 150CC OF LITER BOLUS.
[2020-05-22] VITALS (8 sets, daily range): BP systolic 83–131; BP diastolic 68–82
--- NOTE | 2020-05-22 02:14 | Diagnostic Imaging Report ---
EXAMINATION: CHEST SINGLE (PORTABLE) INDICATION: Atrial fibrillation COMPARISON: None FINDINGS: TUBES and LINES: None. LUNGS: Normal lung volumes. Left basilar haziness. PLEURA: No pleural effusion or pneumothorax. HEART AND MEDIASTINUM: The cardiomediastinal silhouette is unremarkable. BONES AND SOFT TISSUES: No acute osseous lesion. Soft tissues are unremarkable. Cervical fixation hardware. Degenerative changes. Left mid clavicular deformity. UPPER ABDOMEN: No free air under the diaphragm. IMPRESSION: Mild cardiomegaly. Left basilar haziness can be due to atelectasis or pneumonia. Signed by: Chuck Rice DO on 05/22/2020 2:10 AM
--- OUTSIDE RECORDS SUMMARY | 2020-05-22 02:28 | XMS REPORT | Continuity of Care Document ---
Author Author [facility] t Organization [facility] Address [address] [place] [address] Phone Unavailable Care Team Providers Care Legal Operations Manager Name Role Phone MISAEL WILCOX MD PCP JOAO QUIÑONES Attphys Unavailable Lucien QUIJANO Attphys Unavailable Marco Antonio DON Admphys Unavailable Payers Payer Name Policy Type Policy Number Effective Date Expiration Date Blossom panda Medicare A & B [id number] 1999 00:00:00 C [facility] Problems Condition Name Condition Details Condition Category Status Onset Date Resolution Date Last Treatment Date Treating Clinician Comments Source Fever Fever Problem Active 2016-03-16 00:00:00 [facility] Hypotension Hypotension Problem Active 2016-03-16 00:00:00 [facility] Pain in the abdomen Pain in the abdomen Problem Active 2016-03-16 00:00 :00 [facility] Allergies, Adverse Reactions, Alerts This patient has no known allergies or adverse reactions. Medications Ordered Medication Name Filled Medication Name Start Date Stop Da te Current Medication? Ordering Clinician Indication Dosage Frequency Signature (SIG) Comments Components Source Divalproex Sodium (Depakote Er) 250 Mg Tab.er.24h Diva lproex Sodium (Depakote Er) 250 Mg Tab.er.24h Yes 250 Daily [facility] Donepezil Hcl (Aricept) 5 Mg Tablet Donepezil Hcl (Aricept) 5 Mg Tabl et Yes 10 Bedtime [facility] Ferrous Sulfate 325 Mg Tablet Ferrous Sulfate 325 Mg Tablet Yes 325 Twice A Day [facility] Memantine Hcl (Namenda) 5 Mg Tablet Memantine Hcl (Namenda) 5 Mg Tabl et Yes 5 Twice A Day [facility] Nifedipine (Procardia Xl) 30 Mg Tab.er.24 Nifedipine ( Procardia Xl) 30 Mg Tab.er.24 Yes 30 Daily [facility] Quetiapine Fumarate (Seroquel) 25 Mg Tablet Quetiapine Fumarate (Seroquel) 25 Mg Tablet Yes 25 Bedtime [facility] Carisoprodol 350 Mg Tablet, 350 Mg Oral Carisoprodol 350 Mg Tablet, 350 Mg Oral 2016-03-23 00:00:00 No 350 Every 6 Hour s While Awake for Muscle Spasms [facility] Carvedilol (Coreg) 3.125 Mg Tab, 3.125 Mg Oral Carvedi lol (Coreg) 3.125 Mg Tab, 3.125 Mg Oral 2016-03-23 00:00:00 No 3.125 Twice A Da y [facility] Furosemide 40 Mg Tablet, 40 Mg Oral Furosemide 40 Mg Tablet, 40 Mg Oral 2016-03-23 00:00:00 No 40 Daily [facility] Levofloxacin (Levaquin) 500 Mg Tablet, 500 Mg Oral Lev ofloxacin (Levaquin) 500 Mg Tablet, 500 Mg Oral 2016-03-23 00:00:00 No 500 D aily [facility] Lisinopril 10 Mg Tablet, 10 Mg Oral Lisinopril 10 Mg Tablet, 10 Mg Oral 2016-03-23 00:00:00 No 10 Daily [facility] Meclizine Hcl (Antivert) 25 Mg Tablet, 25 Mg Oral Mecl izine Hcl (Antivert) 25 Mg Tablet, 25 Mg Oral 2016-03-23 00:00:00 No 25 Every 8 Hours [facility] Trazodone Hcl 50 Mg Tablet, 50 Mg Oral Trazodone Hcl 50 Mg Table t, 50 Mg Oral 2016-03-23 00:00:00 No 50 Daily [facility] Procedures Procedure Date / Time Performed Performing Clinician [facility] e Computed tomography of brain without radiopaque contrast 201 06-07-01 00:00:00 ALMA ROSA QUIJANO [facility] Computed tomography of cervical spine without contrast 03-31 00:00:00 ALMA ROSA QUIJANO [facility] Encounters Start Date/Time End Date/Time Encounter Type Admission Type [facility] Care Department Encounter ID Source 2019-03-31 08:15:00 2019-03-31 10:53:00 Departed Emergency Room 1 ALMA ROSA QUIJANO [facility] [id number] [facility] Results Test Description Test Time Test Comments Results Result Comments Source CHEST SINGLE (PORTABLE) 2020-05-22 02:06:00 [facility] [address] [address] Patient Name: JOSE GRAJEDA MR #: [id number] : 1935 Age/Sex: 85/F Req #: [id number] Adm Physician: Ordered by: JOAO QUIÑONES DO Report #: [id number] Location: ER Room/Bed: Procedure: [id number] DX/CHEST SINGLE (PORTABLE) Exam Date: 05/21/20 Exam Time: 2355 REPORT STATUS: Signed EXAMINATION: CHEST SINGLE (PORTABLE) INDICATION: Atrial fibrillation COMPARISON: None FINDINGS: TUBES and LINES: None. LUNGS: Normal lung volumes. Left basilar haziness. PLEURA: No pleural effusion or pneumothorax. HEART AND MEDIASTINUM: The cardiomediastinal silhouette is unremarkable. BONES AND SOFT TISSUES: No acute osseous lesion. Soft tissues are unremarkable. Cervical fixation hardware. Degenerative changes. Left mid clavicular deformity. UPPER ABDOMEN: No free air under the diaphragm. IMPRESSION: Mild cardiomegaly. Left basilar haziness can be due to atelectasis or pneumonia. Signed by: Chuck Rice DO on 05/22/2020 2:10 AM Dictated By: CHUCK RICE DO 9 Transcribed By: FABIAN on 05/22/20209 COPY TO: JOAO QUIÑONES DO WRIST COMPLETE LEFT 2019-03-31 11:18:[id number] [address] Patient Name: JOSE GRAJEDA MR #: [id number] : 1935 Age/Sex: 84/F Req #: [id number] Adm Physician: Ordered by: ALMA ROSA QUIJANO MD Report #: [id number] Location: ER Room/Bed: Procedure: [id number] DX/WRIST COMPLETE LEFT Exam Date: 03/31/19 Exam Time: 929 REPORT STATUS: Signed Exam: Left Wrist - [...] QUIJANO MD ELBOW LEFT COMPLETE 2019-03-31 11:14:[address] [address] Patient Name: JOSE GRAJEDA MR #: [id number] : 1935 Age/Sex: 84/F Req #: [id number] Adm Physician: Ordered by: ALMA ROSA QUIJANO MD Report #: [id number] Location: ER Room/Bed: Procedure: [id number] DX/ELBOW LEFT COMPLETE Exam Date: 03/31/19 Exam Time: 929 REPORT STATUS: Signed Left Elbow- 3 Views HISTORY: Pain COMPARISON: None FINDINGS: No acute fracture or dislocation. No joint effusion. Mild degenerative changes with small osteophyte formation. Venous access at the antecubital fossa. IMPRESSION: No acute osseous injury. Signed by: Patricia Teran MD on 03/31/2019 11:17 AM Dictated By: PATRICIA TERAN MD 1117 Transcribed By: FABIAN on 03/31/19 1117 COPY TO: ALMA ROSA QUIJANO MD Alkaline Phosphatase 2019-03-31 09:49:00 Test Item Alkaline Phosphatase (test code = 6768-6) 104 40-150 [facility] IY9372-08-31 09:38:00* Test Item Value Reference Range Interpretation Comments Creatine Kinase MB (test code = 15974-2) 8.40 0-5.0 H [facility] WestTroponin [id number] 09:38:00* Test Item Value Reference Range Interpretation Comments Troponin I (test code = ZUU5602) 0.004 0-0.300 [facility] CERVICAL SPINE [id number] 09:35:[address] [address] Patient Name: JOSE GRAJEDA MR #: [id number] : 1935 Age/Sex: 84/F Req #: [id number] Adm Physician: Ordered by: ALMA ROSA QUIJANO MD Report #: [id number] Location: ER Room/Bed: Procedure: [id number] CT/ CT CERVICAL SPINE WO Exam Date: [...] 9:54 AM Dictated By: JAREN CORTEZ MD 3 Transcribed By: FABIAN on 03/31/19953 COPY TO: ALMA ROSA QUIJANO MD CT BRAIN WO 2019-03-31 09:35:[address] [address] Patient Name: JOSE GRAJEDA MR #: [id number] : 1935 Age/Sex: 84/F Req #: [id number] Adm Physician: Ordered by: ALMA ROSA QUIJANO MD Report #: [id number] Location: ER Room/Bed: Procedure: CT/ CT BRAIN WO Exam Date: 03/31/19 Exam Time: 08 REPORT STATUS: Signed Head and cervi jackelin [...] No gross acute abnormalities. Atlantoaxial articulation: Intact. Pat ient's head is rotated at the time the [...] 9:54 AM Dictated By: JAREN CORTEZ MD Electron ically Signed By: JAREN CORTEZ MD on 03/31/19 0954 Transcribed By: FABIAN johnson 03/31/1953 COPY TO: ALMA ROSA QUIJANO MD Sodium Level 2019-03-31 09:33:00* Test Item Value Reference Range Interpretation Comments Sodium Level (test code = 2951-2) 141 136-145 [facility]assium Iizyw5378-64-05 09:33:00* Test Item Value Reference Range Interpretation Comments Potassium Level (test code = 2823-3) 4.3 3.5-5.1 [facility] WestChloride Rxkeb1861-36-53 09:33:00* Test Item Value Reference Range Interpretation Comments Chloride Level (test code = 2075-0) 102 98-107 [facility] WestCarbon Dioxide Hjnol0450-45-45 09:33:00* Test Item Value Reference Range Interpretation Comments Carbon Dioxide Level (test code = 2028-9) 27 22-29 [facility] WestAnion [id number] 09:33:00* Test Item Value Reference Range Interpretation Comments Anion Gap (test code = 59202-1) 16.3 8-16 H [facility] WestBlood Urea Lhyyrrib9285-70-74 09:33:00* Test Item Value Reference Range Interpretation Comments Blood Urea Nitrogen (test code = 3094-0) 22 7-26 [facility] WestCreatinine2019-07-01 09:33:00* Test Item Value Reference Range Interpretation Comments Creatinine (test code = 2160-0) 0.85 0.57-1.11 [facility] WestBUN/Creatinine Fnfci2437-67-81 09:33:00* Test Item Value Reference Range Interpretation Comments BUN/Creatinine Ratio (test code = 3097-3) 26 6-25 H [facility] WestEstimat Glomerular Filtration Rate 2019-03-31 09:33:00* Test Item Value Reference Range Interpretation Comments Estimat Glomerular Filtration Rate (test code = 346781406) > 60 >60 Ranges were taken from the National Kidney Disease Education Program and the [facility] [employer] literature.Reference ranges:60 or greater: Tfvrqo32-01 ( for 3 consecutive months): Chronic kidney disease 15 or less: Kidney failureHCA [facility] Healthcare WestGlucose Cosbi2871-32-17 09:33:00* Test Item Value Reference Range Interpretation Comments Glucose Level (test code = WDG1932) 106 74-118 [facility] WestCalcium Mxmqz4064-45-06 09:33:00* Test Item Value Reference Range Interpretation Comments Calcium Level (test code = 58886-3) 9.0 8.4-10.2 [facility] WestTotal Clqrizppc4181-99-18 09:33:00* Test Item Value Reference Range Interpretation Comments Total Bilirubin (test code = 1975-2) 0.6 0.2-1.2 [facility] WestAspartate Amino Transf (AST/SGOT) 2019-03-31 09:33:00* Test Item Value Reference Range Interpretation Comments Aspartate Amino Transf (AST/SGOT) (test code = Aspartate Amino Transf (AST/SGOT)) 27 5-34 [facility] WestAlanine Aminotransferase (ALT/SGPT) 2019-03-31 09:33:00* Test Item Value Reference Range Interpretation Comments Alanine Aminotransferase (ALT/SGPT) (test code = 1742-6) 22 0-55 [facility] WestTotal Frdtszf3452-04-01 09:33:00* Test Item Value Reference Range Interpretation Comments Total Protein (test code = 2885-2) 7.7 6.5-8.1 [facility] WestAlbumin2019-07-01 09:33:00* Test Item Value Reference Range Interpretation Comments Albumin (test code = 1751-7) 3.8 3.5-5.0 [facility] WestGlobulin2019-07-01 09:33:00* Test Item Value Reference Range Interpretation Comments Globulin (test code = 43445-1) 3.9 2.3-3.5 H [facility] WestAlbumin/Globulin Tvkrq4619-63-51 09:33:00 * Test Item Value Reference Range Interpretation Comments Albumin/Globulin Ratio (test code = 1759-0) 1.0 0.8-2.0 [facility] WestCreatine Vemuot1012-02-77 09:33:00* Test Item Value Reference Range Interpretation Comments Creatine Kinase (test code = 2157-6) 365 29-168 H [facility] WestLactic Acid Ekijc7022-73-35 09:25:00* Test Item Value Reference Range Interpretation Comments Lactic Acid Level (test code = Lactic Acid Level) 8.7 4.5- 19.8 [facility] WestWhite Blood Dnduq3514-75-13 08:53:00* Test Item Value Reference Range Interpretation Comments White Blood Count (test code = 6690-2) 6.59 4.8-10.8 [facility] WestRed Blood Lzdsm9861-43-91 08:53:00* Test Item Value Reference Range Interpretation Comments Red Blood Count (test code = 789-8) 4.35 3.6-5.1 [facility] WestHemoglobin2019-07-01 08:53:00* Test Item Value Reference Range Interpretation Comments Hemoglobin (test code = 65332-2) 12.5 12.0-16.0 [facility] WestHematocrit2019-07-01 08:53:00* Test Item Value Reference Range Interpretation Comments Hematocrit (test code = 4544-3) 37.7 34.2-44.1 [facility] WestMean Corpuscular Aijyiq7929-57-47 08:53:00* Test Item Value Reference Range Interpretation Comments Mean Corpuscular Volume (test code = 787-2) 86.7 81-99 [facility] WestMean Corpuscular Exkkkkzcdi1901-22-89 08:53:00* Test Item Value Reference Range Interpretation Comments Mean Corpuscular Hemoglobin (test code = 785-6) 28.7 28-32 [facility] WestMean Corpuscular Hemoglobin Concent 2019-03-31 08:53:00* Test Item Value Reference Range Interpretation Comments Mean Corpuscular Hemoglobin Concent (test code = 786-4) 33.2 31-35 [facility] WestRed Cell Distribution Dofkd4446-75-98 08:53:00* Test Item Value Reference Range Interpretation Comments Red Cell Distribution Width (test code = 29057-0) 13.0 11.7 -14.4 [facility] WestPlatelet Kdgwe8554-92-85 08:53:00* Test Item Value Reference Range Interpretation Comments Platelet Count (test code = 777-3) 175 140-360 [facility] WestNeutrophils (%) (Auto)2019-03-31 08:53:00 * Test Item Value Reference Range Interpretation Comments Neutrophils (%) (Auto) (test code = 00546-4) 82.2 38.7-80.0 H [facility] WestLymphocytes (%) (Auto)2019-03-31 08:53:00 * Test Item Value Reference Range Interpretation Comments Lymphocytes (%) (Auto) (test code = 736-9) 8.8 18.0-39.1 L [facility] WestMonocytes (%) (Auto)2019-03-31 08:53:00* Test Item Value Reference Range Interpretation Comments Monocytes (%) (Auto) (test code = 5905-5) 7.0 4.4-11.3 [facility] WestEosinophils (%) (Auto)2019-03-31 08:53:00 * Test Item Value Reference Range Interpretation Comments Eosinophils (%) (Auto) (test code = 713-8) 1.4 0.0-6.0 [facility] WestBasophils (%) (Auto)2019-03-31 08:53:00* Test Item Value Reference Range Interpretation Comments Basophils (%) (Auto) (test code = 706-2) 0.3 0.0-1.0 [facility] WestIM GRANULOCYTES %2019-03-31 08:53:00* Test Item Value Reference Range Interpretation Comments IM GRANULOCYTES % (test code = IM GRANULOCYTES %) 0.3 0.0- 1.0 [facility] WestNeutrophils # (Auto)2019-03-31 08:53:00* Test Item Value Reference Range Interpretation Comments Neutrophils # (Auto) (test code = 751-8) 5.4 2.1-6.9 [facility] WestLymphocytes # (Auto)2019-03-31 08:53:00* Test Item Value Reference Range Interpretation Comments Lymphocytes # (Auto) (test code = 77416-8) 0.6 1.0-3.2 L [facility] WestMonocytes # (Auto)2019-03-31 08:53:00* Test Item Value Reference Range Interpretation Comments Monocytes # (Auto) (test code = 742-7) 0.5 0.2-0.8 [facility] WestEosinophils # (Auto)2019-03-31 08:53:00* Test Item Value Reference Range Interpretation Comments Eosinophils # (Auto) (test code = 711-2) 0.1 0.0-0.4 [facility] WestBasophils # (Auto)2019-03-31 08:53:00* Test Item Value Reference Range Interpretation Comments Basophils # (Auto) (test code = 704-7) 0.0 0.0-0.1 [facility] WestAbsolute Immature Granulocyte (auto 2019-03-31 08:53:00* Test Item Value Reference Range Interpretation Comments Absolute Immature Granulocyte (auto (erendira t code = Absolute Immature Granulocyte (auto) 0.02 0-0.1 [facility]
[2020-05-22] MEDS ORDERED: METOPROLOL TARTRATE INJ 1 MG/ML VIAL IV PRN (02:30)
[2020-05-22] MEDS ORDERED: POTASSIUM CHLORIDE 10MEQ EA PO ONE (07:15)
[2020-05-22] MEDS: METOPROLOL SUCCINATE 25 MG TAB XL PO SCH ×2 (08:52→16:19)
[2020-05-22] MEDS: APIXAB 2.5 MG TABLET PO SCH ×2 (08:52→16:19)
--- NOTE | 2020-05-22 08:52 | NUR ---
PATIENT IS AWAKE, ALERT TO PERSON AND PLACE, AND IS IN STABLE CONDITION WITH NO S/S OF RESPIRATORY DISTRESS. NO PAIN VOICED. TELEMETRY APPLIED. BED ALARM APPLIED. CALL LIGHT IS WITHIN REACH, PATIENT INSTRUCTED TO CALL FOR ASSISTANCE NEEDED.
[2020-05-22 09:06] LABS: INR 1.11; PROTHROMBIN TIME 14.9 seconds (11.9-14.5)
[2020-05-22 09:19] LABS: CREATINE KINASE MB 0.7 ng/mL (0-5.0)
--- NOTE | 2020-05-22 11:47 | History and Physical ---
HISTORY OF PRESENT ILLNESS: [facility], where she was seen last evening on routine rounds. She was found to be by physical examination in atrial fibrillation with a rapid ventricular rate. Electrocardiogram was requested. EKG was done 5 hours later . The patient was moved to the hospital for control and reassessment. The patient's sensorium was reduced at the convalescent center and otherwise she was stable there. She was not in isolation maguire there. The case was discussed with the emergency room physician here 3 times this morning. The patient was treated with diltiazem and beta-blockers REVIEW OF SYSTEMS: Denies headache or visual change. She denies chest pain or shortness of breath. Denies GI symptoms. Denies musculoskeletal symptoms. History is not totally reliable. The patient has had a history of dementia and wandering and has been in a closed unit at her convalescent center for several years. See also prior records here. PAST SURGICAL HISTORY: Includes prior cholecystectomy. Cervical spine surgery. Fracture to C6-C7 several years ago. Surgical history also includes prior vein stripping and herniorrhaphy. ALLERGIES: THE PATIENT IS ALLERGIC TO PENICILLIN. PAST MEDICAL HISTORY: Included falls, degenerative joint disease, primary hypertension, chronic kidney disease, type 2 diabetes, managed with diet recently. MEDICATIONS: See also alf med list accompanying her chart here. Prior chest x-rays here have shown mild cardiomegaly. There is a questionable history of COVID [facility]. The patient was not in an [facility] maguire [facility]. PHYSICAL EXAMINATION: VITAL SIGNS: Temperature is 97, pulse is 100 and irregularly irregular, respiratory rate is 14, not labored, BP 121/74, O2 saturation 98% on room air. GENERAL: The patient's sensorium is baseline now. She is conversant. She is improved from last evening. HEENT: She has no icterus or pallor. No jugular venous distention. Pulses are palpable, although weak. Pupils 2 mm, poorly reactive. EOMS adequate. Old forehead scars from prior falls. PULMONARY: Auscultation is grossly clear, although cooperation ability is somewhat limited. CARDIAC: Sounds S1 and S2 are distant and soft. ABDOMEN: Soft. Bowel sounds normal. EXTREMITIES: Without edema, clubbing, or cyanosis. Pulses dampened. Strength nonfocally reduced. Reduced memory short-term and long-term. IMAGING STUDIES: Initial data reviewed including lab and imaging studies. Left basilar pulmonic abnormality on chest x-ray, see report, "Can be atelectasis or pneumonia" per Dr. Rice, radiologist. Cardiac silhouette unremarkable. Echo pending. Potassium 3.4, to replete. Natriuretic peptide 568 when in atrial fibrillation with a rapid rate. BUN 30, creatinine 1.4, to follow up. In 2016, BUN 16 and creatinine 0.92. IMPRESSION: Atrial fibrillation with rapid ventricular rate, controlled rate. Add low-dose Eliquis. Replete potassium. ER appropriately consulted relay checker on-call. Chronic medical problems as mentioned, included hypertension . We will reinstitute prior to admission medications if needed if behavioral difficulties recur. Current coronavirus disease 2019 testing is still pending at time of this dictation per electronic medical record. MD JOYCE Gómez/MODL /[id number]
[2020-05-22] MEDS ORDERED: ATIVAN1 MG PO (16:16)
[2020-05-22] MEDS ORDERED: RISPERIDONE0.5 MG PO (16:17)
[2020-05-22 16:25] LABS: CREATINE KINASE 42 IU/L (29-168)
[2020-05-22] MEDS: LORAZEPAM 1 MG TAB PO SCH (16:28)
[2020-05-22] MEDS: RISPERIDONE 0.5 MG TAB PO SCH (16:55)
[2020-05-22] MEDS ORDERED: LASIX20 MG PO (17:54)
[2020-05-22] MEDS ORDERED: ACETAMINOPHEN325 M1 PO (17:54)
[2020-05-22] MEDS ORDERED: ZOLOFT50 MG PO (17:54)
[2020-05-22] MEDS ORDERED: AMLODIPINE BESYL5 MG PO (17:54)
[2020-05-22] MEDS ORDERED: MECLIZINE HCL12.5 MG PO (17:54)
[2020-05-22] MEDS ORDERED: LOPERAMIDE1 MG/7.51 PO (18:11)
[2020-05-22] MEDS ORDERED: NYSTATIN1 EAC2 TOP (18:11)
[2020-05-22] MEDS ORDERED: MULTIVITAMINS1 EAC6 PO (18:14)
--- NOTE | 2020-05-22 19:20 | NUR ---
PATIENT IN STABLE CONDITION WITH NO S/S OF RESPIRATORY DISTRESS. NO PAIN VOICED. TELEMETRY APPLIED. BALAJI HOSE APPLIED. BED ALARM APPLIED. CALL LIGHT IS WITHIN REACH, PATIENT INSTRUCTED TO CALL FOR ASSISTANCE NEEDED. REPORT GIVEN TO ONCOMING NURSE.
--- NOTE | 2020-05-22 20:30 | NUR ---
PATIENT RESTING IN BED IN STABLE CONDITION, NO SIGNS OF RESPIRATORY DISTRESS NOTED. IV IS INTACT AND PATIENT'S VITALS ARE WITHIN NORMAL RANGE. BED IS IN LOW POSITION, BOTH SIDE RAILS ARE UP, CALL LIGHT IS WITHIN EASY REACH, WILL CONTINUE TO MONITOR.
--- NOTE | 2020-05-22 22:59 | Consultation ---
DATE OF CONSULTATION: Cardiology Consultation REASON FOR CONSULTATION: Atrial fibrillation. HISTORY OF PRESENT ILLNESS: This is an 85-year-old woman, who presented from an outside facility and was noted to be in atrial fibrillation with rapid ventricular response. The patient appears to be mildly confused. Denies any ongoing chest pain, palpitations, or shortness of breath. REVIEW OF SYSTEMS: Cannot obtain a full review of systems, however, presenting symptoms of recurrent illness as she has mild confusion. PAST MEDICAL HISTORY: Chronic kidney disease, diabetes mellitus, debility, and hypertension. PAST SURGICAL HISTORY: None recent. PAST FAMILY HISTORY: Noncontributory. SOCIAL HISTORY: No illicit drug, alcohol, or tobacco use. ALLERGIES: PENICILLIN. MEDICATIONS: See medication reconciliation form. PHYSICAL EXAMINATION: VITAL SIGNS: Temperature is 98.5, heart rate is ranging from 79 to 101, respiratory rate is 18, blood pressure is 131/78, oxygen saturation 98% on room air. GENERALLY: Elderly woman, in no apparent distress, mildly confused. HEAD: Normocephalic and atraumatic. Eyes, the extraocular muscles are intact. Conjunctivae are clear. NECK: No JVD. No bruits. CARDIOVASCULAR: Irregularly irregular. Normal rate. LUNGS: Diminished breath sounds at the bases. ABDOMEN: Soft, nontender, and nondistended. EXTREMITIES: Trace edema. VASCULAR: 2+ pulses. NEUROLOGIC: No focal deficits noted. MEDICATIONS: Reviewed. LABORATORY DATA: Reviewed. Troponin negative x3. Creatinine 1.4, potassium 3.4. A 12-lead electrocardiogram showed atrial fibrillation with rapid ventricular response. Telemetry monitoring shows atrial fibrillation. IMPRESSION: 1. Atrial fibrillation with rapid ventricular response. 2. Hypokalemia. 3. Hypertension. 4. Possible dementia. RECOMMENDATIONS: Continue metoprolol. The patient has recurrent history of falls by medical record. If this is in fact true, anticoagulation likely is not the best option for her, given her risks. Likely, we will need to discuss this with family. Otherwise, continue current cardiovascular medications. We will obtain a 2D echocardiogram. Collect electrolytes to maintain on rvda master certified rv technician. Tyson Witt DO BM/MODL /[id number]
[2020-05-23 02:09] VITALS: BP 99/68
[2020-05-23 06:07] VITALS: BP 103/67
[2020-05-23 06:59] LABS: EOSINOPHILS # (AUTO) 0.3 (0.0-0.4); EOSINOPHILS % 7.8 % (0.0-6.0); HEMATOCRIT 37.2 % (34.2-44.1); HEMOGLOBIN 12.2 g/dL (12.0-16.0); LYMPHOCYTES # (AUTO) 0.8 (1.0-3.2); LYMPHOCYTES % 20.3 % (18.0-39.1); MEAN CORPUSCULAR HEMOGLOBIN 27.9 pg (28-32); MEAN CORPUSCULAR HGB CONC 32.8 g/dL (31-35); MEAN CORPUSCULAR VOLUME 84.9 fL (81-99); MONOCYTES # (AUTO) 0.3 (0.2-0.8); MONOCYTES % 8.3 % (4.4-11.3); NEUTROPHILS # (AUTO) 2.5 (2.1-6.9); NEUTROPHILS % 62.3 % (38.7-80.0); PLATELET COUNT 204 x10e3/uL (140-360); RED BLOOD COUNT 4.38 x10e6/uL (3.6-5.1); RED CELL DISTRIBUTION WIDTH 14.6 % (11.7-14.4)
[2020-05-23 07:46] LABS: ALBUMIN 2.6 g/dL (3.5-5.0); ALBUMIN/GLOBULIN RATIO 0.7 (0.8-2.0); ANION GAP 13.6 mmol/L (8-16); CALCIUM 8.1 mg/dL (8.4-10.2); CREATININE, SERUM 0.91 mg/dL (0.57-1.11); POTASSIUM 3.6 mmol/L (3.5-5.1)
[2020-05-23 07:58] LABS: CREATINE KINASE 21 IU/L (29-168)
[2020-05-23] MEDS: LORAZEPAM 1 MG TAB PO SCH (08:30)
[2020-05-23] MEDS: RISPERIDONE 0.5 MG TAB PO SCH ×2 (08:42→16:02)
[2020-05-23] MEDS: METOPROLOL SUCCINATE 25 MG TAB XL PO SCH ×2 (08:42→16:03)
[2020-05-23] MEDS: APIXAB 2.5 MG TABLET PO SCH ×2 (08:42→16:02)
[2020-05-23 10:28] VITALS: BP 110/79
[2020-05-23 10:30] VITALS: BP 110/79
--- NOTE | 2020-05-23 10:33 | NUR ---
PATIENT IS AWAKE AND IN STABLE CONDITION WITH NO S/S OF RESPIRATORY DISTRESS. NO PAIN VOICED. TELEMETRY APPLIED. IV INTACT TO LEFT AC WITH COVER DRESSING. BALAIJ HOSE APPLIED BILATERALLY TO LOWER EXTREMITIES. BED ALARM APPLIED. CALL LIGHT IS WITHIN REACH, PATIENT INSTRUCTED TO CALL FOR ASSISTANCE NEEDED.
--- NOTE | 2020-05-23 10:54 | NUR ---
Spoke with Katiana, charge nurse at [facility] [phone]; [address], [place] [address]. She stated pt can come back today if discharged, back to room 55A. Initiated RTF and gave to pt nurse, Chrissy MCKEON.
[2020-05-23 12:05] VITALS: BP 104/85
--- NOTE | 2020-05-23 13:27 | Progress Note ---
DATE: Cardiology Progress Note SUBJECTIVE: The patient's case was discussed with nurse at bedside. She states there are no cardiac events and the patient is asymptomatic. OBJECTIVE: VITAL SIGNS: Temperature is 98.4, heart rate 87, respirations 18, blood pressure is 104/85, and oxygen saturation 98% on room air. GENERAL: Well appearing, in no apparent distress. Visualized through window. The patient was not physically examined due to COVID-19 isolation. LABORATORY DATA: Reviewed. Hemoglobin stable at 12.2. Creatinine 0.9, potassium 3.6. Echocardiogram showed ejection fraction 45-50%. TELEMETRY: Telemetry monitoring showed atrial fibrillation with controlled ventricular response. IMPRESSION: 1. Atrial fibrillation. 2. Hypokalemia. 3. Hypertension. 4. Possible dementia. RECOMMENDATIONS: Continue metoprolol and Eliquis. We will need to discuss going forward with the family regarding Eliquis given possible dementia. The patient may be discharged from a cardiovascular standpoint with outpatient followup. DO KURT Solorio/GABRIELA /[id number]
[2020-05-23 15:42] VITALS: BP 104/74
--- NOTE | 2020-05-23 18:39 | NUR ---
PATIENT TRANSFER TO [facility] RM 55A- PATIENT IN STABLE CONDITION WITH NO S/S OF RESPIRATORY DISTRESS. NO PAIN INDICATED. NO IV ACCESS- PATIENT REMOVED HER IV, TIP WAS INTACT. TRANSFER PACKET GIVEN TO EMS SERVICE. PATIENT DID NOT HAVE ANY PERSONAL BELONGINGS WITH HER.
--- NOTE | 2020-05-25 03:32 | Discharge Summary ---
HOSPITAL COURSE: See H and P. Admitted with new onset atrial fibrillation and rapid ventricular rate. The patient's rate was controlled. She was initiated on treatment with Eliquis. She was kindly followed while here by consulting radiology supervisor on the ER call, Dr. Witt, see notes. Echocardiogram pending. The patient was isolated for positive COVID. She was positive last month and remains so while here, although the report for her test here was not completed until postdischarge. Stay here was uneventful. Hypokalemia 3.4, improved to normal with one dose of 10 mEq of potassium chloride by mouth. Enzymes revealed no evidence of [place]. No fever. No respiratory symptoms. The patient did experience some agitation associated with her severe dementia while here and her prior to admission medicines were resumed. See also serial laboratory and imaging studies as mentioned in H and P. FINAL IMPRESSION: Atrial fibrillation with rapid ventricular rate, new onset, at the time of admission, elevated natriuretic peptide at that time. Currently on anticoagulation. Chronic primary hypertension, chronic dementia. Positive for coronavirus. Onset positivity dated to April 09. No current other symptoms. DIAGNOSES: 1. Previously included falls, none recently. 2. Degenerative joint disease. 3. Type 2 diabetes mellitus, managed with diet at this time. TSH 4.1. PTT essentially normal. Natriuretic peptide 568 in the ER when in atrial fibrillation with rapid ventricular rate. Two blood cultures negative. See also imaging reports. Case discussed with the [facility], who have isolated her. Beta-blockers discussed with the [facility], where she will continue on discharge here. MD JOYCE Gómez/EVANL /[id number]
== END 2020-05-23 18:12 ==
LOC: ER 23:20 → ERHOLD 05-22 01:57 → MED/SURG3 05-22 02:51
PROVIDERS: ADMIT Internal Medicine; ATTEND Internal Medicine
DX: I48.19 Other persistent atrial fibrillation (principal); M19.90 Unspecified osteoarthritis, unspecified site; E87.6 Hypokalemia; F03.90 Unspecified dementia, unspecified severity, without behavioral disturbance, psychotic disturbance, mood disturbance, and anxiety; I12.9 Hypertensive chronic kidney disease with stage 1 through stage 4 chronic kidney disease, or unspecified chronic kidney disease; N18.9 Chronic kidney disease, unspecified; Z86.19 Personal history of other infectious and parasitic diseases; Z11.59 Encounter for screening for other viral diseases
CPT/HCPCS: 36415 ×3; 71045; 80053 ×2; 82550 ×3; 82553 ×3; 82948; 83880; 84443; 84484 ×3; 85025 ×2; 85610; 85730; 87040; 93005; 93306; 97139; 99284; G0378 ×2; J1160; J7030; U0002